=== PATIENT | female | born 1990 | race Caucasian/White ===

== ENCOUNTER → 2016-03-16 | Outpatient (CLI) | payer MEDICAID ==
[~2016-03-16] MED LIST: FLAGYL 500MG.500 MG PO; FLINTSTONES1 CTB OR; ZANTAC 150150 MG PO
[2016-03-16 18:28] LABS: BUN 10 mg/dL (7-18); GFR (ESTIMATED) 86 ML/MIN (59-); LYMPH # 2.5 K/mm3 (0.7-4.5); LYMPH % 35.2 % (10-50.0)
[2016-03-16 18:29] LABS: HEMOGLOBIN 14.3 g/dL (12.2-16.2)
[2016-03-18 08:40] LABS: Folate (Folic Acid) 4.8 ng/mL (>3.0); HIV Screen 4th Generation wRfx Non Reactive (Non Reactive); Vitamin B12 561 pg/mL (211-946); Vitamin D, 25-Hydroxy 24.8 ng/mL (30.0-100.0)
[2016-03-19 14:35] LABS: HBsAg Screen Negative (Negative); Hep A Ab, IgM Negative (Negative); Hep B Core Ab, IgM Negative (Negative); Hep C Virus Ab <0.1 (0.0-0.9)
== END ==
LOC: LAB 17:02
PROVIDERS: Physician Assistant
DX: R53.83 Other fatigue (principal)
CPT/HCPCS: G0432

== ENCOUNTER → 2016-09-21 | Outpatient (CLI) | payer MEDICAID ==
--- NOTE | 2016-09-21 15:41 | RADIOLOGY REPORT PS360 ---
US TRANSVAGINAL PREG HISTORY: OB US FOR DATES ORDERING PHYSICIAN: Xavier Garcia MD PATIENT AGE: 26 years COMPARISON: None FINDINGS: An intrauterine gestational sac is present with a pole with a crown-rump length of 2.6 bycm correlating to gestational age of 9 weeks 4 days. heart tones are present with an FHR of 164 bpm's. Yolk sac is noted. The amnion and chorion have not yet fused. Adnexa: Unremarkable. IMPRESSION: Live intrauterine gestation at 9 weeks 4 days as described above.
== END ==
LOC: RAD 14:48
DX: O26.841 Uterine size-date discrepancy, first trimester (principal)

== ENCOUNTER → 2016-12-05 | Outpatient (CLI) | payer MEDICAID ==
--- NOTE | 2016-12-06 07:47 | RADIOLOGY REPORT PS360 ---
US PREG COMP INDICATION: ANATOMY OB US. TECHNIQUE: ultrasound transabdominal scanning/ COMPARISON: Ultrasound regnancy 09/21/2016 FINDINGS Single viable intrauterine gestation. Cephalic position. The cervix appears satisfactory. Long, closed and measuring 5.77 centimeter in length. Complete survey performed and was unremarkable on the submitted images as in PACS.No discrete anomalies identified on survey imaging by technologist Active fetus. Three-vessel cord with satisfactory umbilical cord insertion. . Survey of brain & ventricles. Face and neck survey unremarkable. Diaphragm & views chest unremarkable. abdomen: Both kidneys noted & unremarkable. Stomach noted & satisfactory. spine: Survey of the spine satisfactory with no anomalies identified nor imaged Both arms and legs noted. Amniotic fluid.-Adequate. Maternal adnexa -no significant findings. measurements:. Average ultrasound age 20 weeks and 5 days. Gestational age 20 weeks 2 days. BPD = 4.84 cm equaling 20 weeks 5 days OFD = 6.36 cm equaling 21 weeks 2 days HC = 17.75 cm equaling 20 weeks 2 days AC = 16.18 cm equaling 21 weeks 2 days FL = 3.32 cm equaling 20 weeks 3 days Heart rate = 153 BPM. Cerebellum = 2.09 cm equaling 21 weeks 1 day humerus = 3.43 cm equaling 21 weeks 5 days IMPRESSION: Single viable intrauterine gestation in breech position currently. 20 weeks 5 daysaverage ultrasound age with today's measurements Posterior placenta. Active fetus. No discrete abnormalities on the ultrasound survey.
== END ==
LOC: RAD 12:51
DX: Z34.80 Encounter for supervision of other normal pregnancy, unspecified trimester (principal)

== ENCOUNTER → 2017-01-09 | Outpatient (CLI) | payer MEDICAID ==
[2017-01-09 15:34] LABS: HEMOGLOBIN 12.4 g/dL (12.2-16.2); LYMPH # 1.9 K/mm3 (0.7-4.5); LYMPH % 20.2 % (10-50.0)
[2017-01-09 17:33] LABS: BUN 11 mg/dL (7-18)
[2017-01-09 17:38] LABS: GFR (ESTIMATED) 119 ML/MIN (59-)
== END ==
LOC: LAB 14:28
PROVIDERS: Nurse Practitioner Obstetrics & Gynecology
DX: Z34.80 Encounter for supervision of other normal pregnancy, unspecified trimester (principal)